=== PATIENT | female | born 1970 | race Caucasian/White ===

== ENCOUNTER 2018-02-22 20:29 | Emergency (ER) | payer OTHER ==
[2018-02-22] MEDS ORDERED: LIDOCAINE 1% INJ-PF (10 MG/ML) 30 ML SDV NEB ONE (22:39)
[2018-02-22] MEDS ORDERED: PROCHLORPERAZINE MALEATE 5 MG TABLET PO ONE (22:47)
[2018-02-22] MEDS ORDERED: ONDANSETRON 4 MG TAB.RAPDIS PO ONE (22:47)
[2018-02-22 23:06] LABS: ABSOLUTE LYMPHOCYTES (AUTO) 1.4 10^3/uL (0.5-4.7); ABSOLUTE MONOCYTES (AUTO) 0.6 10^3/uL (0.1-1.4); ABSOLUTE NEUT (AUTO) 5.3 10^3/uL (1.7-8.2); BASOPHILS % (AUTO) 0.4 % (0-2); EOSINOPHILS % (AUTO) 0.7 % (0-6); HEMATOCRIT 35.9 % (36.0-47.0); LYMPHOCYTES % (AUTO) 19.3 % (13-45); MEAN CORPUSCULAR HEMOGLOBIN 27.7 pg (27.0-33.4); MEAN CORPUSCULAR HGB CONC 33.3 g/dL (32.0-36.0); MEAN CORPUSCULAR VOLUME 83 fl (80-97); MONOCYTES % (AUTO) 8.1 % (3-13); PLATELET COUNT 249 10^3/uL (150-450); RED BLOOD COUNT 4.32 10^6/uL (3.72-5.28); RED CELL DISTRIBUTION WIDTH 14.2 % (11.5-14.0); SEGMENTED NEUTROPHILS % (AUTO) 71.5 % (42-78); TOTAL CELLS COUNTED % (AUTO) 100 %; WHITE BLOOD COUNT 7.4 10^3/uL (4.0-10.5)
[2018-02-22 23:19] LABS: ANION GAP 13 (5-19); BLOOD UREA NITROGEN 12 mg/dL (7-20); CALCIUM 10.1 mg/dL (8.4-10.2); CARBON DIOXIDE 25 mmol/L (22-30); CHLORIDE 104 mmol/L (98-107); GLUCOSE 97 mg/dL (75-110); POTASSIUM 3.8 mmol/L (3.6-5.0); SODIUM 141.6 mmol/L (137-145)
[2018-02-23] MEDS ORDERED: BENZONATATE 100 MG CAPSULE PO ONE (00:03)
[2018-02-23] MEDS ORDERED: HYDROXYZINE PAMOATE 25 MG CAPSULE PO ONE (00:04)
[2018-02-23] MEDS ORDERED: ALBUTEROL SULFATE HFA (90 MCG/PUFF) 8 GM MDI (1 MDI/ER DISP) IH ONE (00:04)
--- NOTE | 2018-02-23 00:11 | ER Document Report ---
ED General - General Chief Complaint: Cough Stated Complaint: CONGESTION,COUGH Time Seen by Provider: 02/22/18 21:46 TRAVEL OUTSIDE OF THE [place] IN LAST 30 DAYS: No - HPI Patient complains to provider of: Cough congestion watery eyes Notes: Patient states symptoms stated above ongoing for the last 3 days. Patient states she went to her PCPs office was complaining also some rib pain chest pain whenever she was coughing an EKG was performed patient was given a breathing treatment and on the review of the EKG at the urging of her PCP was directed to the ER for further evaluation for possible cardiac etiology of the patient's pain. Patient states pain only when she is coughing patient denies any recent travel denies any recent antibiotics resting comfortably upon my evaluation. Patient denies any fevers chills diarrhea. - Related Data Allergies/Adverse Reactions: aspirin [Aspirin] Allergy (Verified 03/10/13 18:29) Penicillins Allergy (Verified 03/10/13 18:29) Past Medical History - Social History Smoking Status: Never Smoker Chew tobacco use (# tins/day): No Frequency of alcohol use: None Drug Abuse: None Family History: Arthritis, CAD, DM, Hyperlipidemia, Hypertension, Malignancy Patient has suicidal ideation: No Patient has homicidal ideation: No Neurological Medical History: Reports: Hx Migraine Renal/ Medical History: Denies: Hx Peritoneal Dialysis Malignancy Medical History: Reports: Hx Cervical Cancer, Hx Skin Cancer Psychiatric Medical History: Reports: Hx Anxiety Past Surgical History: Reports: Hx Dilation and Curettage, Hx Gynecologic Surgery - hysterectomy, Hx Hysterectomy - Immunizations Immunizations up to date: Yes Hx Diphtheria, Pertussis, Tetanus Vaccination: Yes Review of Systems - Review of Systems Constitutional: No symptoms reported EENT: Other - Watering eyes congestion Cardiovascular: No symptoms reported Respiratory: Cough, Short of breath, Wheezing Gastrointestinal: No symptoms reported Genitourinary: No symptoms reported Female Genitourinary: No symptoms reported Musculoskeletal: No symptoms reported Skin: No symptoms reported Hematologic/Lymphatic: No symptoms reported Neurological/Psychological: No symptoms reported -: Yes All other systems reviewed and negative Physical Exam - Vital signs Vitals: Temp Pulse Resp BP Pulse Ox 99.6 F 114 H 18 148/81 H 95 02/22/18 20:38 02/22/18 20:38 02/22/18 20:38 02/22/18 20:38 02/22/18 20:38 Interpretation: Normal - General General appearance: Appears well, Alert - HEENT Head: Normocephalic, Atraumatic Eyes: Normal Pupils: PERRL - Respiratory Respiratory status: No respiratory distress Chest status: Nontender Breath sounds: Normal Chest palpation: Normal - Cardiovascular Rhythm: Regular Heart sounds: Normal auscultation Murmur: No - Abdominal Inspection: Normal Distension: No distension Bowel sounds: Normal Tenderness: Nontender Organomegaly: No organomegaly - Back Back: Normal, Nontender - Extremities General upper extremity: Normal inspection, Nontender, Normal color, Normal ROM , Normal temperature General lower extremity: Normal inspection, Nontender, Normal color, Normal ROM , Normal temperature, Normal weight bearing. No: Jessica's sign - Neurological Neuro grossly intact: Yes Cognition: Normal Orientation: AAOx4 [place] Coma Scale Eye Opening: Spontaneous [place] Coma Scale Verbal: Oriented [place] Coma Scale Motor: Obeys Commands Tyrel Coma Scale Total: 15 Speech: Normal Motor strength normal: LUE, RUE, LLE, RLE Sensory: Normal - Psychological Associated symptoms: Normal affect, Normal mood - Skin Skin Temperature: Warm Skin Moisture: Dry Skin Color: Normal Course - Re-evaluation Re-evalutation: 02/23/18 04:21 Reviewed EKG at bedside with the patient Koby will. Explained to the patient we can treat her symptoms or go ahead and perform lab work to confirm no signs of cardiac damage. Patient opted for lab work. Cough slightly improved with lidocaine neb. EKG from the patient's PCP was reviewed showing diffuse minimal ST segment depression read by the computer. This was unimpressive. Your EKG here did not show any acute abnormality. Patient had a troponin performed which was negative. Patient otherwise looks very consistent with a viral URI or symptoms due to allergies in the air and increased amount just involving the ear and throat: At this time. Patient was educated about treatment options. Patient states understanding of these options patient was discharged home. 02/23/18 04:22 - Vital Signs Vital signs: Temp Pulse Resp BP Pulse Ox 99.6 F 96 18 124/81 93 02/22/18 20:38 02/23/18 00:39 02/22/18 20:38 02/23/18 00:39 02/23/18 00:39 - Laboratory Result Diagrams: 02/22/18 22:50 02/22/18 22:50 Laboratory results interpreted by me: 02/22/18 22:50 Hct 35.9 L RDW 14.2 H Discharge - Discharge Clinical Impression: URI (upper respiratory infection) Qualifiers: URI type: unspecified URI Qualified Code(s): J06.9 - Acute upper respiratory infection, unspecified Condition: Good Disposition: HOME, SELF-CARE Instructions: Upper Respiratory Illness ([facility]) Additional Instructions: Your evaluation is consistent with URI viral versus possible underlying allergic etiology. Recommend taking an antihistamine such as Zyrtec over-the- counter once daily. He may try the Tessalon Perles as needed for cough would also recommend using honey for cough. Use the inhaler that you received here in the ER 2 puffs every 4 hours as needed for shortness of breath. Vistaril to help you sleep at night. Return to ER symptoms worsen follow-up with your primary care physician. Prescriptions: Hydroxyzine Pamoate [Vistaril 25 mg Capsule] 25 mg PO QHS #30 capsule Benzonatate [Tessalon Perle 100 mg Capsule] 100 mg PO Q8HP PRN #40 cap PRN Reason: Cetirizine HCl [Zyrtec] 10 mg PO DAILY #30 tablet Forms: Return to Work Referrals: MONET PALOMINO PA-C [Primary Care Provider] - Follow up as needed
[2018-02-23 00:41] VITALS: BP 124/81
--- NOTE | 2018-02-23 06:46 | EKG REPORT ---
SEVERITY:- BORDERLINE ECG - SINUS TACHYCARDIA BORDERLINE T ABNORMALITIES, ANT-LAT LEADS : Confirmed by: Cyndi Taylor MD 23-Feb-2018 06:45:41
== END 2018-02-23 00:55 | disposition home or self-care (01) ==
LOC: ER 20:29
DX: J06.9 Acute upper respiratory infection, unspecified (principal); R07.81 Pleurodynia; Z88.6 Allergy status to analgesic agent; Z88.0 Allergy status to penicillin; Z85.41 Personal history of malignant neoplasm of cervix uteri; Z85.828 Personal history of other malignant neoplasm of skin; Z90.710 Acquired absence of both cervix and uterus
CPT/HCPCS: 93005; 94640; 99284; 36415; 85025; 80048; 84484; 93010; S0119; J3490 ×2; S0183